=== PATIENT | male | born 1980 | race Caucasian/White ===

== ENCOUNTER 2022-01-14 12:08 | Emergency (ER) | payer BC, SELFPAY ==
[~2022-01-14 12:08] MED LIST: Iopamidol 370 76% 100 ML VIAL ONE
[2022-01-14 13:18] LABS: #Basophils 0.2 thou/uL (0.0-0.2); #Eosinphils 0.1 thou/uL (0.0-0.7); #Lymphocytes 1.2 thou/uL (1.20-3.40); #Monocytes 1.2 thou/uL (0.11-0.59); #Neutrophils 13.9 thou/uL (1.40-6.50); %Eosinophils 0.3 % (0.0-10.0); %Lymphocytes 7.2 % (21.0-51.0); %Monocytes 7.3 % (0.0-10.0); %Neutrophils 84.2 % (42.0-75.0); Mean Corpuscular HGB CONC 33.7 g/dL (32.0-36.0); Mean Corpuscular Hemoglobin 30.8 pg (27.0-31.0); Mean Corpuscular Volume 91.6 fl (78.0-98.0); Mean Platelet Volume 10.7 fL (7.4-10.4); Platelet Count 211 10x3/uL (130-400); RBC Distribution Width 11.5 % (11.5-14.5); Red Blood Cell (RBC) Count 5.19 mill/uL (4.70-6.10); White Blood Cell (WBC) Count 16.5 10x3/uL (4.8-10.8)
[2022-01-14] MEDS ORDERED: Ketorolac Tromethamine 30 MG/ML VIAL ONE ×2 (13:19→19:15)
[2022-01-14] MEDS ORDERED: Dicyclomine 20 MG/2 ML VIAL ONE (13:19)
[2022-01-14] MEDS ORDERED: Lactated Ringer's 1,000 ML ONE ×2 (13:19→14:51)
[2022-01-14] MEDS ORDERED: Ondansetron PF 4 MG/2 ML Vial ONE (13:19)
[2022-01-14 13:37] LABS: ALT (SGPT) 47 U/L (8-55); AST (SGOT) 18 U/L (5-34); Albumin 4.6 g/dL (3.5-5.0); Alkaline Phosphatase 77 U/L (40-110); Anion Gap 16 mmol/L (10-20); BUN (Urea Nitrogen) 10 mg/dL (8.9-20.6); Bilirubin, Total 1.8 mg/dL (0.2-1.2); Calc. Creatinine Clearance 0 mL/min (70-130); Calcium 9.2 mg/dL (7.8-10.44); Carbon Dioxide 24 mmol/L (22-29); Chloride 101 mmol/L (98-107); Estimated GFR 70; Globulin 3.1 g/dL (2.4-3.5); Glucose 130 mg/dL (70-105); Lipase 18 U/L (8-78); Magnesium 1.8 mg/dL (1.6-2.6); Protein, Total 7.7 g/dL (6.0-8.3); Sodium 137 mmol/L (136-145)
[2022-01-14] MEDS ORDERED: Amoxicillin/Potassium Clav 875 MG TAB ONE (14:06)
[2022-01-14 15:12] LABS: Bilirubin Negative (Negative); Blood, Urine Negative (Negative); Clarity Clear (Clear); Glucose, Urine (Dipstick) Negative (Negative); Ketone, Urine Negative (Negative); Leukocyte Negative (Negative); Nitrite Negative (Negative); Protein, Urine (Dipstick) Negative (Neg-Trace); Specific Gravity, Urine 1.015 (1.005-1.030); Urobilinogen 0.2 mg/dL (Less than 2); pH, Urine 5.5 (5.0-9.0)
[2022-01-14] MEDS ORDERED: metroNIDAZOLE 500 MG/100 ML BAG ONE (15:49)
[2022-01-14] MEDS ORDERED: Acetaminophen 500 MG TAB ONE (16:06)
[2022-01-14] MEDS ORDERED: Dextrose 5 % And 0.9 % NaCl 1,000 ML ONE (18:46)
[2022-01-14] MEDS ORDERED: Morphine 4 MG/ML VIAL ONE (19:15)
== END 2022-01-14 22:18 | disposition home or self-care (01) ==
LOC: MADERS 12:08
DX: K57.32 Diverticulitis of large intestine without perforation or abscess without bleeding (principal); R65.10 Systemic inflammatory response syndrome (SIRS) of non-infectious origin without acute organ dysfunction
CPT/HCPCS: 36416; 74177; 80053; 81003; 82550; 83605; 83690; 83735; 84443; 84484; 85025; 87040; 93005; 94760; 96361; 96365; 96368; 96372; 96375; 96376; 36415-59; J1885; J1956; J2270; J2405; J7042; J7120; Q9967